=== PATIENT | female | born 1950 | race Caucasian/White ===

== ENCOUNTER 2018-03-25 06:40 | Day surgery (SDC) | payer BC ==
[2018-03-25] MEDS ORDERED: FENTAnyl 50 MCG/ML VIAL (09:18)
[2018-03-25] MEDS ORDERED: MIDAZOLAM 1 MG/ML 2 ML INJ ×2 (09:18)
== END 2018-03-25 18:19 | disposition home or self-care (01) ==
LOC: GIL 06:40
DX: Z12.11 Encounter for screening for malignant neoplasm of colon (principal); D12.0 Benign neoplasm of cecum; K57.90 Diverticulosis of intestine, part unspecified, without perforation or abscess without bleeding
CPT/HCPCS: 45385; 88305